=== PATIENT | male | born 1950 | race Caucasian/White ===

== ENCOUNTER → 2019-03-17 10:59 | Outpatient (CLI) | payer MEDICARE, OTHER, SELFPAY ==
--- NOTE | 2019-03-17 | DI.RAD.S_ITS ---
PROCEDURE: XR FOOT LT MIN 3V INDICATIONS: left foot pain TECHNIQUE: 3 views of the foot were acquired. COMPARISON: None. FINDINGS: Bones: No fractures or dislocations. 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 There also is moderately severe degenerative change at the base of the second middle phalanx No suspicious bony lesions. Soft tissues: No tibiotalar joint effusion. Achilles tendon appears normal. 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 Dictated by: Bao Bell M.D. on 03/17/2019 at 11:58 Approved by: Bao Bell M.D. on 03/17/2019 at 11:59
== END ==
PROVIDERS: PCP Student in an Organized Health Care Education/Training Program; Visit Provider Student in an Organized Health Care Education/Training Program
DX: M79.672 Pain in left foot (principal); M20.32 Hallux varus (acquired), left foot
CPT/HCPCS: 73630

== ENCOUNTER → 2019-08-31 09:49 | Outpatient (CLI) | payer MEDICARE, OTHER, SELFPAY ==
[2019-08-31 10:55] LABS: Alanine Aminotransferase 33 IU/L (<50); Albumin 4.4 g/dL (3.5-5.0); Albumin Globulin Ratio 1.5 (1.0-2.8); Alkaline Phosphatase 59 U/L (38-126); Aspartate Aminotransferase 32 IU/L (17-59); BUN Creatinine Ratio 15.5 (6-22); Bilirubin Total 0.4 mg/dL (0.2-1.3); Blood Urea Nitrogen 13 mg/dL (9-20); Calcium 9.5 mg/dL (8.4-10.2); Carbon Dioxide 26 mmol/L (22-32); Chloride 104 mmol/L (98-107); Estimated Glomerular Filt Rate > 60.0 mL/min (>60); Glucose 107 mg/dL (80-110); HEMOLYSIS < 15 (0-50); Potassium 4.2 mmol/L (3.4-5.1); Sodium 137 mmol/L (137-145); Total Protein 7.4 g/dL (6.3-8.2)
[2019-08-31 11:24] LABS: Thyroid Stimulating Hormone 1.86 uIU/mL (0.47-4.68)
== END ==
PROVIDERS: PCP Student in an Organized Health Care Education/Training Program; Referring Provider Internal Medicine Cardiovascular Disease; Visit Provider Internal Medicine Cardiovascular Disease
DX: I10 Essential (primary) hypertension (principal)
CPT/HCPCS: 36415; 80053; 83735; 84443

== ENCOUNTER → 2020-05-18 08:44 | Outpatient (CLI) | payer MEDICARE, OTHER, SELFPAY ==
[2020-05-18] MEDS: COVID-19 VACC #1, MRNA(MOD) 100 MCG/0.5 ML VIAL IM (08:51)
== END ==
PROVIDERS: PCP Student in an Organized Health Care Education/Training Program; Visit Provider Internal Medicine
DX: Z23 Encounter for immunization (principal)
CPT/HCPCS: 0011A; 91301

== ENCOUNTER → 2020-06-15 08:19 | Outpatient (CLI) | payer MEDICARE, OTHER, SELFPAY ==
[2020-06-15] MEDS: COVID-19 VACC #2, MRNA(MOD) 100 MCG/0.5 ML VIAL IM (08:28)
== END ==
PROVIDERS: PCP Student in an Organized Health Care Education/Training Program; Visit Provider Internal Medicine
DX: Z23 Encounter for immunization (principal)
CPT/HCPCS: 0012A; 91301

== ENCOUNTER 2020-11-25 09:22 | Emergency (ER) | payer MEDICARE, OTHER, SELFPAY ==
[2020-11-25 09:25] VITALS: BP 184/89; PULSE 69; RESP 16; TEMP 36.4; O2SAT 99; BMI 29.8
--- NOTE | 2020-11-25 09:31 | ED_ITS ---
HPI - Extremity Problem General Chief complaint: Fall Stated complaint: fell, hit right hip, swollen Time Seen by Provider: 11/25/20 09:24 History of Present Illness HPI Narrative: 70-year-old male nonsmoker and daily drinker presents with a chief complaint of a ground level fall resulting and right hip injury. He does take Eliquis but did not hurt his head or neck. He has no chest pain or shortness of breath. He has pain with ambulation was able to walk in. He denies any numbness, tingling or weakness. He frequently gets up in the middle the night as he has restless legs, he did so last night and states his feet got tangled up in a blanket and he fell over onto his hip. Related Data Allergies Allergy/AdvReac Type Severity Reaction Status Date / Time No Known Drug Allergies Allergy Verified 11/25/20 09:30 Review of Systems Review of Systems Narrative: GENERAL: Denies chills, fatigue, malaise, fever, sweats. HEENT: Denies sinus pain, ear pain, sore throat, difficulty swallowing, dizziness. RESPIRATORY: Denies dyspnea, cough, wheezing, hemoptysis, sputum. CARDIOVASCULAR: Denies chest pain, palpitations, orthopnea, edema, GASTROINTESTINAL: Denies nausea, vomiting, abdominal pain, diarrhea, constipation, melena. : Denies dysuria, frequency, incontinence, hematuria, urinary retention. MUSCULOSKELETAL: See HPI SKIN: Denies rash, skin lesions, or other NEUROLOGIC: Denies weakness, headache, numbness, change in speech, confusion, seizures, incoordination. PSYCHIATRIC: No concerning psychosocial issues. 12 point review of systems is negative except for those stated above Patient History Social History Smoking Status: Unknown if ever smoked Exam Narrative Exam Narrative: GEN: AOx3 and in mild distress EYES: Pupils are equal, round, and reactive to light and accommodation. Extraoccular muscles are intact bilaterally. There is no subconjunctival h emorrhage or exudate. CHEST: Lungs are clear to auscultation bilaterally and free of wheezes, rales, or rhonchi. Heart rate is regular rhythm, there are no murmurs, clicks, rubs, or gallops. There is no chest wall tenderness. ABD: Abdomen is soft and nontender. There is no guarding or rebound. Bowel sounds are normal in all 4 quadrants. There is no mass or organomegaly. EXT: Full painless ROM of all extremities with no loss of sensation or strength. No pain on axial loading. Large hematoma on R hip. Patient ambulated in without limp SKIN: Warm, pink, and dry. No erythema or rash Initial Vital Signs Initial Vital Signs: Vital Signs Temperature 97.6 F 11/25/20 09:25 Pulse Rate 69 11/25/20 09:25 Respiratory Rate 16 11/25/20 09:25 Blood Pressure 184/89 H 11/25/20 09:25 Pulse Oximetry 99 11/25/20 09:25 Course Orders Ordered: ED Orders 11/25/20 09:32 XR hip w pel if done RT 2V Stat Reevaluation(s) Reevaluation #1: [id number] Jakob Collier DO Find Patient Imaging - [facility] Peolpes 70 M 1950 ACTIVITY DATE EXAM STATUS AUTHOR 11/25/20 09:32 Signed Stanley Barr [address] [id number] ReportSigned Patient: Barrett PeoplesMR#: [id number]: 1950cct:[id number]/Sex: 70 / MDate of Service: 11/25/20Loc: EDAccession Number: [id number] Procedure: XR hip w pel if done RT 2V Ordering Provider: Jakob Collier D.O. PROCEDURE: XR HIP W PEL IF DONE RT 2V INDICATIONS: fall with hip pain TECHNIQUE: AP pelvis with lateral view(s) of the right hip(s). COMPARISON: [facility], , XR PELVIS WITH BILATERAL LATERAL HIPS, 09/08/2019, 9:32. FINDINGS: Bones: No fractures or dislocations. Pelvic ring appears intact. No suspicious bony lesions. Bilateral hip arthroplasty hardware is seen. No findings of hardware failure or hardware loosening can be seen. Soft tissues: The visualized bowel gas pattern is normal. No suspicious soft tissue calcifications. IMPRESSION: Bilateral hip arthroplasty hardware, without complication seen. No fractures or dislocations can be seen. Dictated by: Stanley Barr M.D. on 11/25/2020 at 9:05 Approved by: Stanley Barr M.D. on 11/25/2020 at 9:05 Vital Signs Vital signs: Vital Signs - 8 hr 11/25/20 09:25 Temperature 97.6 F Pulse Rate 69 Respiratory Rate 16 Blood Pressure 184/89 H Pulse Oximetry 99 Discharge Plan Departure Patient Disposition: Home Clinical Impression: Contusion of hip Qualifiers: Encounter type: initial encounter Laterality: right Qualified Code(s): S70.01XA - Contusion of right hip, initial encounter Hematoma of hip Qualifiers: Encounter type: initial encounter Laterality: right Qualified Code(s): S70.01XA - Contusion of right hip, initial encounter Instructions: DI for Hematoma (Bruise) Activity Restrictions/Additional Instructions: *You have been diagnosed with [fall with right hip hematoma] *What to do: *Please continue to take your regular medications as directed. [ ] New medication prescriptions sent to your pharmacy: [ ] [ ] New medication written as a paper prescription [ x] No new medications given *Please follow up with your primary care provider in 2-3 days, call for an appointment. Let them know you were seen in the Emergency Department and that we ask that you be seen in follow up. We will electronically transmit a record of today's note if your PCP is in our system *If you do not have a primary care provider please contact the [facility] Resource line at [phone]. They will ask some questions about your medical history and help get you set up with a doctor in the community. *Return to Emergency Department if you should have any new, worsening or concerning symptoms, such as [fever greater than 101 F, shaking chills, worsening pain, persistent vomiting or other bothersome symptoms] Referrals: Karin Solis MD [Primary Care Provider] -
[2020-11-25 10:47] VITALS: BP 138/82; PULSE 56; O2SAT 100
== END 2020-11-25 10:55 | disposition home or self-care (01) ==
PROVIDERS: Emergency Provider Emergency Medicine; PCP Student in an Organized Health Care Education/Training Program
DX: S70.01XA Contusion of right hip, initial encounter (principal); W19.XXXA Unspecified fall, initial encounter; Z79.01 Long term (current) use of anticoagulants
CPT/HCPCS: 73502; 99283; 99284

== ENCOUNTER → 2020-12-04 13:38 | Outpatient (CLI) | payer MEDICARE, OTHER, SELFPAY ==
[2020-12-04 14:13] LABS: COVID19 -Nasal RAPID Negative (Negative)
== END ==
PROVIDERS: PCP Student in an Organized Health Care Education/Training Program; Visit Provider Physician Assistant
DX: R05 Cough (principal); R06.7 Sneezing; Z20.822 Contact with and (suspected) exposure to COVID-19
CPT/HCPCS: 87635

== ENCOUNTER → 2022-02-05 15:11 | Outpatient (CLI) | payer OTHER, SELFPAY ==
--- NOTE | 2022-02-05 | DI.RAD.S_ITS ---
PROCEDURE: XR TOE RT MIN 2V INDICATIONS: RIGHT TOE PAIN TECHNIQUE: 3 views of the1st toe(s) acquired. COMPARISON: None. FINDINGS: Bones: No fractures or dislocations. No suspicious bony lesions. Mild hallux valgus metatarsus prima varus alignment and medial bunion. Severe 1st MTP joint space narrowing with dorsal osteophytosis. Soft tissues: No suspicious soft tissue densities. IMPRESSION: 1. 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 2. Hallux valgus alignment and medial bunion. Dictated by: Ethan Elizabeth [facility] Interpreted: Rajesh Noyola MD on 02/05/2022 at 15:31 Transcribed by: JONATAN on 02/05/2022 at 15:32 Approved by: Rajesh Noyola M.D. on 02/12/2022 at 16:15
== END ==
PROVIDERS: PCP Family Medicine; Referring Provider Registered Nurse; Visit Provider Registered Nurse
DX: M19.071 Primary osteoarthritis, right ankle and foot (principal); M20.11 Hallux valgus (acquired), right foot; M21.611 Bunion of right foot; M79.674 Pain in right toe(s)
CPT/HCPCS: 73660

== ENCOUNTER → 2023-09-10 16:27 | Outpatient (CLI) | payer OTHER, SELFPAY ==
--- NOTE | 2023-09-10 16:28 | DI.MRI.S_ITS ---
PROCEDURE: MR HEAD/BRAIN WO CON INDICATIONS: MEMORY CHANGES TECHNIQUE: Non-contrast axial T1 spin echo, axial T2 fast spin echo, sagittal and axial FLAIR, coronal T2 fast spin echo, axial gradient echo, axial diffusion and ADC through the brain. COMPARISON: None. FINDINGS: Image quality: Excellent. CSF spaces: Ventricles appear symmetric in size and shape. Basal cisterns are patent. No extra-axial fluid collections. Brain: No intracranial bleeds or mass effects. There is cerebral volume loss for age. There are periventricular and deep white matter chronic small vessel ischemic changes. Brainstem appears normal. Diffusion-weighted images show no acute infarct. No chronic ischemic insults. Normal intravascular flow voids are present. Skull and face: Calvarial bone marrow is normal in signal. Orbits are normal. Sinuses: Sinuses demonstrate mucosal thickening most prominent in the left maxillary sinus. Scattered areas of fluid are present within the right mastoid air cells. Recommend correlation to potential symptoms of mastoiditis. IMPRESSION: 1. No acute intracranial process. 2. Mild to moderate atrophy and chronic microvascular ischemic changes. 3. Prominent left maxillary sinus disease. Dictated by: Alyson Delgado M.D. on 09/11/2023 at 10:14 Approved by: Alyson Delgado M.D. on 09/11/2023 at 10:15
== END ==
LOC: MRI 16:27
PROVIDERS: PCP Family Medicine; Referring Provider Family Medicine; Visit Provider Family Medicine
DX: R41.3 Other amnesia (principal); J32.0 Chronic maxillary sinusitis
CPT/HCPCS: 70551

== ENCOUNTER → 2024-07-08 15:51 | Outpatient (CLI) | payer MEDICARE, SELFPAY ==
--- NOTE | 2024-07-08 15:54 | DI.RAD.S_ITS ---
PROCEDURE: XR CHEST 2V INDICATIONS: CHEST PAIN TECHNIQUE: 2 views of the chest were acquired. COMPARISON: None. FINDINGS: Heart, mediastinum and pulmonary vascular: Heart is normal in size and configuration. Mediastinum is unremarkable. Pulmonary vascular is normal. Lungs: Clear Pleural spaces: Normal-no effusions or pneumothorax. IMPRESSION: Normal chest. Dictated by: Prudencio Coyle M.D. on 07/09/2024 at 12:08 Approved by: Prudencio Coyle M.D. on 07/09/2024 at 12:08
== END ==
PROVIDERS: PCP Family Medicine; Referring Provider Family Medicine; Visit Provider Family Medicine
DX: R07.9 Chest pain, unspecified (principal)
CPT/HCPCS: 71046

== ENCOUNTER → 2024-08-26 08:06 | Outpatient (CLI) | payer MEDICARE, SELFPAY ==
--- NOTE | 2024-08-26 | DI.MRI.S_ITS ---
PROCEDURE: MR HEAD/BRAIN WO CON INDICATIONS: repeated falls, altered mental status TECHNIQUE: Noncontrast axial T1 spin echo, axial T2 fast spin echo, sagittal and axial FLAIR, coronal T2 fast spin echo, axial gradient echo, axial diffusion and ADC through the brain. COMPARISON: [facility], MR, MR HEAD/BRAIN WO CON, 09/10/2023, 16:32. FINDINGS: CSF Spaces: Basal cisterns are patent. No extra-axial fluid collections. Ventricles are normal in size and shape. Brain: No intracranial masses or hemorrhage. [place]/white matter interface is normal. Brainstem appears normal. Diffusion-weighted sequence is unremarkable without evidence of acute infarct. Normal intravascular flow voids are present. Mild age-appropriate atrophy and white matter chronic ischemic change Skull and face: Calvarium has normal marrow signal. Orbits appear normal. Sinuses: Left maxillary sinus hypoplasia and mucosal thickening measuring up to 3 mm IMPRESSION: Age-appropriate atrophy and chronic ischemic change without acute infarct, hemorrhage or mass lesion. 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 on 08/26/2024 at 13:33
== END ==
LOC: MRI 08:07
PROVIDERS: PCP Family Medicine; Referring Provider Family Medicine; Visit Provider Family Medicine
DX: R41.82 Altered mental status, unspecified (principal); J32.0 Chronic maxillary sinusitis; R29.6 Repeated falls
CPT/HCPCS: 70551

== ENCOUNTER → 2024-12-23 12:35 | Outpatient (ROUT) | payer MEDICARE, SELFPAY ==
[2024-12-23 12:49] LABS: INR 1.0 (0.9-1.3); Prothrombin Time 11.4 SECONDS (9.4-12.5)
== END ==
PROVIDERS: PCP Family Medicine; Visit Provider Family Medicine
DX: E44.0 Moderate protein-calorie malnutrition (principal); I10 Essential (primary) hypertension; R25.2 Cramp and spasm; G31.84 Mild cognitive impairment of uncertain or unknown etiology; Z86.79 Personal history of other diseases of the circulatory system
CPT/HCPCS: 85610

== ENCOUNTER → 2025-01-06 10:10 | Outpatient (CLI) | payer MEDICARE, SELFPAY ==
--- NOTE | 2025-01-06 10:11 | DI.US.S_ITS ---
PROCEDURE: US ABDOMEN LIMITED INDICATIONS: HEPITITIS TECHNIQUE: Real-time focused scanning was performed of the abdomen, with image documentation. COMPARISON: None. FINDINGS: Liver: Size 14.6 cm. Diffusely increased echogenicity with focal fatty sparing in the gallbladder fossa. Gallbladder: Normal. Biliary: Common bile duct measures 2 mm. No intrahepatic biliary duct dilation. Pancreas: Not demonstrated due to overlying bowel gas. IMPRESSION: Hepatic steatosis. Limited examination due to bowel gas. Dictated by: Mookie De La Fuente M.D. on 01/06/2025 at 13:59 Approved by: Mookie De La Fuente M.D. on 01/06/2025 at 14:03
== END ==
PROVIDERS: PCP Family Medicine; Referring Provider Family Medicine; Visit Provider Family Medicine
DX: E44.0 Moderate protein-calorie malnutrition (principal); K75.9 Inflammatory liver disease, unspecified; K76.0 Fatty (change of) liver, not elsewhere classified
CPT/HCPCS: 76705

== ENCOUNTER → 2025-01-16 13:05 | Outpatient (CLI) | payer MEDICARE, SELFPAY ==
--- NOTE | 2025-01-16 13:07 | DI.MRI.S_ITS ---
PROCEDURE: MR ABDOMEN LIVER PROTOCOL INDICATIONS: HEPATIC STENOSIS PER US TECHNIQUE: Coronal HASTE, axial 2D FLASH in- and [id number]; axial breath-hold T2 FSE. Dynamic axial VIBE during the administration of contrast; post-contrast coronal VIBE or 2D FLASH with fat saturation from the hepatic dome to the iliac crests. Optional diffusion weighted imaging and ADC may be performed. COMPARISON: [facility], US, US ABDOMEN LIMITED, 01/06/2025, 10:42. FINDINGS: Image quality: Diagnostic. Lung bases: Unremarkable. Liver: The liver is normal in size and signal with a smooth margin. No significant signal loss on T1 out of phase imaging. No visible focal fat sparing or focal fat infiltration. No suspicious enhancement. Gallbladder: No stones, wall thickening, or pericholecystic fluid Biliary ducts: No biliary dilation. Pancreas: Normal size and morphology without visible ductal dilatation or inflammation. Spleen: Size is within normal limits. Adrenal Glands: No adrenal nodules. Kidneys and Ureters: Symmetric enhancement. No nephrolithiasis or hydronephrosis. No visible mass or cyst requiring follow up. No hydroureter. Stomach and Bowel: Stomach and visible bowel loops are within normal limits. Peritoneum: No abnormal intraperitoneal fluid. No free air. Ventral Wall: No hernia. In the left lower chest subcutaneous tissue, there is artifact from a loop recorder. Abdominal Nodes: No retroperitoneal or mesenteric adenopathy by size criteria. Vessels: The abdominal aorta, IVC, and portal vein are of normal caliber. Bones: No aggressive osseous abnormality. IMPRESSION: No significant hepatic steatosis as seen by ultrasound. No focal hepatic lesions. Dictated by: Debbie Ronquillo M.D. on 01/17/2025 at 15:27 Approved by: Debbie Ronquillo M.D. on 01/17/2025 at 15:38
== END ==
PROVIDERS: PCP Family Medicine; Referring Provider Family Medicine; Visit Provider Family Medicine
DX: K76.0 Fatty (change of) liver, not elsewhere classified (principal); K75.9 Inflammatory liver disease, unspecified; E44.0 Moderate protein-calorie malnutrition
CPT/HCPCS: 74183; A9579

== ENCOUNTER → 2025-03-16 08:04 | Outpatient (CLI) | payer MEDICARE, SELFPAY | PROVIDERS: PCP Family Medicine; Referring Provider Family Medicine | DX: G31.84 Mild cognitive impairment of uncertain or unknown etiology (principal) | CPT/HCPCS: 36415 ==